=== PATIENT | female | born 1950 | race Caucasian/White ===

== ENCOUNTER → 2017-01-28 | Outpatient (CLI) | payer MEDICARE, OTHER ==
[~2017-01-28] MED LIST: ALBUTEROL2.5 MG/0.5 INH; ALENDRONATE SOD70 M1 PO; AZOPT5 ML OU; BENAZEPRIL HCL40 MG PO; BUMEX PO; COUMADIN5 MG PO; DOCUSATE SODIU100 MG PO; FERRO-TIME325 MG PO; FLONASE 0.05% N16 G1; FOLIC ACID PO; GABAPENTIN600 MG PO; HYDROCODON-ACE1 EACH PO; KEPPRA500 M2 PO; LORTAB 5-325 M1 EACH PO; LUMIGAN2.5 ML OD; MIRALAX17 G2 PO; NORTRIPTYLINE H50 MG PO; NORVASC PO; PHENERGAN PO; PHENOL-SODIUM180 M1 MM; PROTONIX PO; RIFAMPIN300 M1 PO; SYNTHROID PO; TYLENOL325 M1 PO; ZOFRAN PO
== END | disposition home or self-care (01) ==
LOC: CLAB 14:15
DX: I26.99 Other pulmonary embolism without acute cor pulmonale (principal)
CPT/HCPCS: 36415; 85379

== ENCOUNTER → 2017-04-28 | Outpatient (CLI) | payer MEDICARE, OTHER | END | disposition home or self-care (01) | LOC: CLAB 14:21 | DX: I26.99 Other pulmonary embolism without acute cor pulmonale (principal) | CPT/HCPCS: 36415; 85379 ==

== ENCOUNTER → 2017-08-17 | Outpatient (CLI) | payer MEDICARE, OTHER ==
--- NOTE | ~2017-08-17 | US84 ---
[id number] [facility] [place] [address] [place], [place] [address] [id number] O MR#: [id number] Acc #: [id number] NAME: BUZZ GARCIA : 1950 SEX: F STUDY DATE/TIME: 08/17/2017 12:21 UNIT: [facility] ROOM: STUDY DESCRIPTION: US LE Veins Complete Herman Stdy Attending Physician: Phan Yanez M.D. Referring Physician: Phan Yanez M.D. Ordering Physician: Phan Yanez M.D. Primary Care Physician: Paz Kincaid M.D. MEDICAL IMAGING REPORT This report is preliminary unless electronic signature is present EXAM Bilateral lower extremity venous Doppler INDICATION Bilateral lower extremity pain for 8 years and neuropathy. TECHNIQUE Thompson-scale, color Doppler, and spectral Doppler waveform analysis was performed through the lower extremities. TECHNIQUE Venous ultrasound examination of both lower extremities was performed using grayscale, spectral Doppler and color flow Doppler imaging. FINDINGS The examination is negative. There is no evidence of deep venous thrombus from the groin to the lower calf bilaterally. Visualized greater saphenous veins are also patent. IMPRESSION Negative examination. No evidence of lower extremity deep venous thrombosis. Dictated by... Esmer Moralez M.D. THIS IS AN ELECTRONICALLY VERIFIED REPORT Esmer Moralez M.D. at 08/18/2017 5:07 PM AFF/jef TD: 08/18/2017 04:10 JOB #: [id number] MEDICAL IMAGING REPORT Page 1 of 1 COPY
== END | disposition home or self-care (01) ==
LOC: CNIV 11:11
DX: Z01.818 Encounter for other preprocedural examination (principal); I26.99 Other pulmonary embolism without acute cor pulmonale
CPT/HCPCS: 36415; 85379; 93970